=== PATIENT | female | born 1960 | race Caucasian/White ===

== ENCOUNTER 2016-10-03 01:33 | Emergency (ER) | payer BC ==
[2016-10-03] MEDS ORDERED: LIDOCAINE 1%/EPINEPHRINE INJ 20 ML VIAL INJ ONE (03:13)
[2016-10-03] MEDS ORDERED: RACEPINEPHRINE HCL 2.25% NEB 0.5 ML AMPUL NEB ONE (03:13)
[2016-10-03] MEDS ORDERED: LIDOCAINE 1%/EPINEPHRINE INJ 20 ML VIAL ONE (03:32)
--- NOTE | 2016-10-03 04:39 | ER Document Report ---
ED General - General Chief Complaint: Nose Bleed Stated Complaint: NOSE BLEED Notes: Patient is a 55-year-old female presents with complaints of nosebleed. She's had intermittent nosebleed for last couple of days. This continued until today today. She says she has somebody goes on the back her throat. She has bleeding medicine the left ear. She will get something to right nares well. She had similar nosebleeds last year. No recent infections. No fevers. No other complaints at this time. No trauma or injuries to the nose. She does not take any blood thinning medications. TRAVEL OUTSIDE OF THE [place] IN LAST 30 DAYS: No - Related Data Allergies/Adverse Reactions: No Known Allergies Allergy (Verified 03/03/12 16:50) Past Medical History - Social History Smoking Status: Never Smoker Chew tobacco use (# tins/day): No Frequency of alcohol use: None Drug Abuse: None Family History: Reviewed & Not Pertinent Patient has suicidal ideation: No Patient has homicidal ideation: No Renal/ Medical History: Denies: Hx Peritoneal Dialysis Musculoskeltal Medical History: Reports Hx Arthritis Past Surgical History: Reports: Hx Cholecystectomy, Hx Hysterectomy, Hx Orthopedic Surgery - knee replacement L - Immunizations Hx Diphtheria, Pertussis, Tetanus Vaccination: Yes Review of Systems - Review of Systems Notes: My Normal Review Basic REVIEW OF SYSTEMS: CONSTITUTIONAL : Denies fever, chills, or sweats. Denies recent illness. EENT: Recurrent nosebleed RESPIRATORY: Denies cough, cold, or chest congestion. Denies shortness of breath, difficulty breathing, or wheezing. GASTROINTESTINAL: Denies abdominal pain. Denies nausea, vomiting, or diarrhea. Denies constipation. Last BM: MUSCULOSKELETAL: Denies neck or back pain or joint pain or swelling. SKIN: Denies rash or skin lesions. HEMATOLOGIC : Denies easy bruising or bleeding. NEUROLOGICAL: Denies altered mental status or loss of consciousness. Denies headache. ALL OTHER SYSTEMS REVIEWED AND NEGATIVE. Physical Exam - Vital signs Vitals: Temp Pulse Resp BP Pulse Ox 97.6 F 85 18 147/93 H 98 10/03/16 01:40 10/03/16 01:40 10/03/16 01:40 10/03/16 01:40 10/03/16 01:40 - Notes Notes: General Appearance: Well nourished, alert, cooperative, no acute distress, no obvious discomfort. Well-appearing Vitals: reviewed, See vital signs table. Head: no swelling or tenderness to the head Eyes: PERRL, EOMI, Conjuctiva clear Mouth: No decreasd moisture Throat: No tonsillar inflammation, No airway obstruction, No lymphadenopathy Ears: Small amount of blood in bilateral nares. Neck: Supple, no neck tenderness, No thyromegaly Lungs: No wheezing, No rales, No rhonci, No accessory muscle use, good air exchange bilaterally. Heart: Normal rate, Regular rythm, No murmur, no rub Skin: warm, dry, appropriate color, no rash. No petechial rash. Neuro: speech clear, oriented x 3, normal affect, responds appropriately to questions. Course - Vital Signs Vital signs: Temp Pulse Resp BP Pulse Ox 97.6 F 85 18 147/93 H 98 10/03/16 01:40 10/03/16 01:40 10/03/16 01:40 10/03/16 01:40 10/03/16 01:40 - Transfer of Care Notes: 10/03/16 05:07 Patient's nosebleed has stopped and has been stopped now for over an hour. She looks and feels improved. She'll be discharged home. I informed her she must return to ER immediately if she has recurrent nosebleeds that did not respond to pressure from 1:15 minutes, heavy bleeding, or she feels unwell. Informed her if she returns she may need a nasal packing. Patient understands this. Patient encouraged to follow up with ENT for possible scope to look at the cause of her nosebleeds if she continues to have recurrent intermittent nosebleeds. Patient agrees with plan and will be discharged home. Dictation of this chart was performed using voice recognition software; therefore, there may be some unintended grammatical errors. Discharge - Discharge Clinical Impression: Epistaxis Condition: Good Disposition: HOME, SELF-CARE Additional Instructions: Nosebleed Instructions There is a significant chance of re-bleeding following a nosebleed. Proper care makes this less likely. Do not touch the nose for 24 hours. Do not blow the nose forcefully for one week. After 24 hours, gently apply Vaseline ointment to both nostrils with the tip of a finger, three times a day, for one week. It's normal to have a bloody mucous discharge for a few days. If active bleeding recurs, blow all the blood from the nose, then sit quietly and pinch the nose as firmly as possible for 10 minutes. If this does not stop the bleeding, return for further care.. Persons with frequent nosebleeds should avoid aspirin (unless prescribed for another reason). Humidity in the bedroom, and petroleum jelly applied to the nostrils at night may help. Please use Afrin nasal spray. Please to 1 spray in each nostril every 12 hours for the next 2 days. Please return to the ER immediately if you have recurrent bleeding that does not respond to holding pressure for 15 minutes or if you have any heavy bleeding from your nose. Please follow up with the ENT doctor for scoping of your nose if you continue to have intermittent nose bleeds. Referrals: SANNA FERNANDO PA-C [Primary Care Provider] - Follow up as needed KURTIS MCGILL MD [[facility]] - 10/05/16
[2016-10-03 05:19] VITALS: BP 133/77
== END 2016-10-03 05:30 | disposition home or self-care (01) ==
LOC: ER 01:33
DX: R04.0 Epistaxis (principal); Z96.652 Presence of left artificial knee joint; Z90.710 Acquired absence of both cervix and uterus
CPT/HCPCS: 94640; 99283; J3490 ×2